=== PATIENT | male | born 1980 | race Caucasian/White ===

== ENCOUNTER 2016-09-17 17:11 | Emergency (ER) | payer MEDICAID, MEDICARE ==
[2016-09-17] MEDS ORDERED: HYDROmorphone 2 MG/ML SDV IM ONE (17:29)
--- NOTE | 2016-09-17 18:03 | EDM.PDOC ---
ED HPI GENERAL MEDICAL PROBLEM - General Chief Complaint: Upper Extremity Injury/Pain Stated Complaint: LEFT SHOULDER Time Seen by Provider: 09/17/16 17:45 Source of Information: Reports: Patient History Limitations: Reports: No Limitations - History of Present Illness INITIAL COMMENTS - FREE TEXT/NARRATIVE: 35 yo male with a past hx of L shoulder dislocation and surgery for a broken clavicle fell on a wet stair today and re-injured this shoulder. Thinks he was able to put a dislocation back in. Now has some numbness of the left hand. Onset: Today Onset Date: 09/17/16 Onset Time: 17:00 Duration: Minutes:, Constant Location: Reports: Upper Extremity, Left Quality: Reports: Ache Severity: Moderate Improves with: Reports: None Worsens with: Reports: Movement Context: Reports: Trauma (fall) Associated Symptoms: Reports: Other (numbness L hand) Treatments BOTTLE PACKER: Reports: Other (see below) (none) - Related Data Allergies Allergy/AdvReac Type Severity Reaction Status Date / Time NSAIDS (Non-Steroidal Allergy Bleeding Verified 09/17/16 17:50 Anti-Inflamma Home Meds: Home Meds NK [No Known Home Meds] 09/17/16 [History] Review of Systems - Review of Systems Review Of Systems: See Below Constitutional: Reports: No Symptoms Respiratory: Reports: No Symptoms Cardiovascular: Reports: No Symptoms GI/Abdominal: Reports: No Symptoms Musculoskeletal: Reports: Shoulder Pain (left) Skin: Reports: No Symptoms Neurological: Reports: Numbness (L hand) Psychiatric: Reports: No Symptoms ED EXAM, GENERAL - Physical Exam Exam: See Below Exam Limited By: No Limitations General Appearance: Alert, WD/WN, No Apparent Distress Peripheral Pulses: 3+: Radial (L) Extremities: No Pedal Edema, Arm Pain (L shoulder tenderness with prominant L distal clavicle.), Limited Range of Motion. No: Pedal Edema Neurological: Alert, Oriented, CN II-XII Intact, Normal Cognition Psychiatric: Normal Affect, Normal Mood Skin Exam: Warm, Dry, Intact, Normal Color, No Rash, Other (Old surgical scars L shoulder) Lymphatic: No Adenopathy Course - Vital Signs Text/Narrative:: X-ray L shoulder-? A/C separation, surgical plates - Orders/Labs/Meds Orders: Active Orders 24 hr Category Date Time Status Shoulder Comp Lt [CR] Stat Exams 09/17/16 17:16 Taken Meds: Medications Discontinued Medications Generic Name Dose Route Start Last Admin Trade Name Keith PRN Reason Stop Dose Admin Hydromorphone HCl 1.5 mg 09/17/16 17:29 09/17/16 17:40 Dilaudid IM 09/17/16 17:30 1.5 mg ONETIME ONE Administration Departure - Departure Time of Disposition: 18:20 Disposition: Home, Self-Care 01 Condition: Fair Clinical Impression: Acromioclavicular joint injury Qualifiers: Encounter type: initial encounter Laterality: left Qualified Code(s): S49.92XA - Unspecified injury of left shoulder and upper arm, initial encounter Radial nerve palsy Qualifiers: Laterality: left Qualified Code(s): G56.32 - Lesion of radial nerve, left upper limb - Discharge Information Forms: ED Department Discharge - My Orders Last 24 Hours: My Active Orders 09/17/16 17:16 Shoulder Comp Lt [CR] Stat - Assessment/Plan Last 24 Hours: My Active Orders 09/17/16 17:16 Shoulder Comp Lt [CR] Stat
[2016-09-17] MEDS ORDERED: Acetaminophen/HYDROcodone 325-5 MG Tab PO ONE (18:20)
[2016-09-17 18:58] VITALS: BP 142/82
--- NOTE | 2016-09-18 13:07 | CR ---
INDICATION: Fell from [employer]. Had surgery 7-8 years ago. LEFT SHOULDER, COMPLETE: Four images of the left shoulder in 3 projections were obtained 09/17/2016 and compared with 04/09/2015, again showing evidence of previous surgery, apparently for severe AC joint strain with anchors in place along the cranial aspect of the distal shaft of the clavicle and at the coracoid process inferiorly. Separation is noted at the AC joint to a similar degree as previously with only slight increased hypertrophic change at the AC joint. The glenohumeral joint space was not delineated. A definite acute fracture or dislocation was not identified. IMPRESSION: 1. No definite acute fracture or dislocation. 2. Post-surgical for apparent severe AC joint strain. BRISA
== END 2016-09-17 18:40 | disposition home or self-care (01) ==
LOC: FB.ED 17:11
DX: S49.92XA Unspecified injury of left shoulder and upper arm, initial encounter (principal); G56.32 Lesion of radial nerve, left upper limb; Z88.8 Allergy status to other drugs, medicaments and biological substances; W10.9XXA Fall (on) (from) unspecified stairs and steps, initial encounter
CPT/HCPCS: 73030; 96372; 99283; A9270; J1170

== ENCOUNTER 2016-11-10 11:54 | Emergency (ER) | payer MEDICARE ==
[2016-11-10 12:04] VITALS: BP 161/86
[2016-11-10] MEDS ORDERED: HYDROmorphone 2 MG/ML SDV IM ONE (12:09)
--- NOTE | 2016-11-10 12:38 | EDM.PDOC ---
ED HPI GENERAL MEDICAL PROBLEM - General Chief Complaint: Upper Extremity Injury/Pain Stated Complaint: LEFT SHOULDER Time Seen by Provider: 11/10/16 11:58 Source of Information: Reports: Patient (Pt said he was dropped off by his boss. Acutally, the patient came with his truck) History Limitations: Reports: No Limitations - History of Present Illness INITIAL COMMENTS - FREE TEXT/NARRATIVE: 36 y.o.w.m stated he came with his Boss after he was doing a Movement of his L shoulder, heard a "pop" and was not able to move it" He "popped it right back in ". Pt c/o severe pain of his left shoulder. No other medical issues. No N/V/D. Pt stated he is from [facility] [place]. He stated he dislocated his shoulder in the past, did not see an orthopedic surgeon yet. Pt stated initially it was a workman comp, later on he stated it did not happen at work. Onset: Today Onset Date: 11/10/16 Onset Time: 08:12 Duration: Hour(s): Location: Reports: Upper Extremity, Left Quality: Reports: Ache, Dull, Same as Previous Episode Severity: Moderate Improves with: Reports: Rest Worsens with: Reports: Movement Context: Reports: Other (pt said he "dislocated his shoulder") Associated Symptoms: Reports: No Other Symptoms - Related Data Allergies Allergy/AdvReac Type Severity Reaction Status Date / Time NSAIDS (Non-Steroidal Allergy Bleeding Verified 09/17/16 17:50 Anti-Inflamma Home Meds: Home Meds oxyCODONE HCl/Acetaminophen [oxyCODONE-Acetaminophen 5-325] 1 tab PO Q4H PRN #3 tablet 11/10/16 [Rx] Past Medical History Gastrointestinal History: Reports: Other (See Below) Other Gastrointestinal History: colitis - Infectious Disease History Infectious Disease History: Reports: Chicken Pox - Past Surgical History GI Surgical History: Reports: Cholecystectomy Musculoskeletal Surgical History: Reports: Shoulder Surgery Social & Family History - Tobacco Use Smoking Status *Q: Never Smoker Second Hand Smoke Exposure: No - Caffeine Use Caffeine Use: Reports: Soda - Recreational Drug Use Recreational Drug Use: No Review of Systems - Review of Systems Review Of Systems: See Below Constitutional: Reports: No Symptoms Eyes: Reports: No Symptoms Ears: Reports: No Symptoms Nose: Reports: No Symptoms Mouth/Throat: Reports: No Symptoms Respiratory: Reports: No Symptoms Cardiovascular: Reports: No Symptoms GI/Abdominal: Reports: No Symptoms Genitourinary: Reports: No Symptoms Musculoskeletal: Reports: Shoulder Pain (left) Skin: Reports: No Symptoms Neurological: Reports: No Symptoms Psychiatric: Reports: No Symptoms ED EXAM, GENERAL - Physical Exam Exam: See Below Exam Limited By: No Limitations General Appearance: Alert, WD/WN, Mild Distress Eye Exam: Bilateral Eye: Normal Inspection Ears: Normal External Exam Ear Exam: Bilateral Ear: Auricle Normal Nose: Normal Inspection, Normal Mucosa Throat/Mouth: Normal Inspection, Normal Lips Head: Atraumatic, Normocephalic Neck: Normal Inspection, Supple, Non-Tender, Full Range of Motion Respiratory/Chest: No Respiratory Distress, Lungs Clear, Normal Breath Sounds Cardiovascular: Normal Peripheral Pulses, Regular Rate, Rhythm Peripheral Pulses: 1+: Radial (L), Radial (R) GI/Abdominal: Normal Bowel Sounds, Soft, Non-Tender (Male) Exam: Deferred Rectal (Males) Exam: Deferred Back Exam: Normal Inspection, Full Range of Motion Extremities: Other (well healed scar left shoulder, mild deformed left shoulder ) Neurological: Alert, Oriented, CN II-XII Intact, Normal Cognition, Normal Gait Psychiatric: Normal Affect, Normal Mood, Other (poss drug seeking behaviour) Skin Exam: Warm, Dry, Intact, Normal Color, No Rash Course - Vital Signs Text/Narrative:: 36 y.o.w.m stated he came with his Boss after he was doing a Movement of his L shoulder, heard a "pop" and was not able to move it" He "popped it right back in ". Pt c/o severe pain of his left shoulder. No other medical issues. No N/V/D. Pt stated he is from [facility] [place]. He stated he dislocated his shoulder in the past, did not see an orthopedic surgeon yet. Pt stated initially it was a workman comp, later on he stated it did not happen at work. PE: Well appearing wm, nad, with obvious left shoulder pain. Imaging: Left shoulder: NAD Impression: Nonspecific left shoulder sprain, Drug seeking behaviour Tx: Initially Dilaudid Pt received a prescription of Oxycodon 5/325 for 3 tablets only!! Reexam: Pt took a taxi, waled back to the hospital 3 min after he left and picked his truck up. There was never a "boss" showing up. Plan: D/C with instructions Last Recorded V/S: Last Vital Signs Temp Pulse 84 11/10/16 11:58 Resp 18 11/10/16 11:58 BP 161/86 H 11/10/16 11:58 Pulse Ox 98 11/10/16 11:58 - Orders/Labs/Meds Orders: Active Orders 24 hr Category Date Time Status Cooling Warming Measures [RC] ASDIRECTED Care 11/10/16 12:09 Active Ice Bag [Ice Therapy] [OM.PC] Routine Oth 11/10/16 12:09 Ordered Meds: Medications Discontinued Medications Generic Name Dose Route Start Last Admin Trade Name Freq PRN Reason Stop Dose Admin Hydromorphone HCl 1 mg 11/10/16 12:09 11/10/16 12:13 Dilaudid IM 11/10/16 12:10 1 mg ONETIME ONE Administration Departure - Departure Time of Disposition: 12:32 Disposition: Home, Self-Care 01 Condition: Good Clinical Impression: Drug-seeking behavior Sprain of shoulder, left Qualifiers: Encounter type: initial encounter Shoulder sprain type: unspecified sprain Qualified Code(s): S43.402A - Unspecified sprain of left shoulder joint, initial encounter - Discharge Information Prescriptions: oxyCODONE HCl/Acetaminophen [oxyCODONE-Acetaminophen 5-325] 1 tab PO Q4H PRN #3 tablet PRN Reason: for severe pain only Referrals: PCP,None [Primary Care Provider] - Forms: ED Department Discharge Additional Instructions: Please apply ice to the your shoulder, use the arm sling, please f/u with ortho in next 3 days, please come back if your symptoms get worse acutely. - My Orders Last 24 Hours: My Active Orders 11/10/16 12:09 Cooling Warming Measures [RC] ASDIRECTED Ice Bag [Ice Therapy] [OM.PC] Routine - Assessment/Plan Last 24 Hours: My Active Orders 11/10/16 12:09 Cooling Warming Measures [RC] ASDIRECTED Ice Bag [Ice Therapy] [OM.PC] Routine
--- NOTE | 2016-11-10 16:24 | CR ---
INDICATION: Left shoulder pain/dislocation. LEFT SHOULDER: Three views of the left shoulder were obtained 11/10/2016 and compared with 09/17/2016, revealing evidence of an AC joint separation repair which remains somewhat and unchanged in appearance from the previous study. There does appear to be periosteal new bone formation at the distal clavicle along with anchors at both the coronoid process and the distal clavicular shaft. Degenerative changes are noted at the glenohumeral joint with a small calcific or bony density along the inferior glenoid lip. This could represent a tiny avulsion chip fracture fragment such as could occur with a dislocation, but may also represent a dystrophic soft tissue calcification from previous soft tissue injury. No overt fracture site was otherwise suggested. No evidence of dislocation is seen. Minimal degenerative change is suggested at the glenohumeral joint, compatible with minimal posttraumatic osteoarthritis. IMPRESSION: 1. Cannot exclude a tiny chip fracture fragment off the inferior aspect of the glenoid labrum - correlate clinically. 2. Minimal posttraumatic osteoarthritis glenohumeral joint. 3. Post AC joint separation surgery unchanged in appearance compared with 09/17, with continued separation of the AC joint components. TALISHAD
== END 2016-11-10 12:50 | disposition home or self-care (01) ==
LOC: FB.ED 11:54
DX: S43.402A Unspecified sprain of left shoulder joint, initial encounter (principal); Z88.8 Allergy status to other drugs, medicaments and biological substances; Z90.49 Acquired absence of other specified parts of digestive tract; Z76.5 Malingerer [conscious simulation]; X58.XXXA Exposure to other specified factors, initial encounter
CPT/HCPCS: 73030; 96372; 99283; J1170